=== PATIENT | female | born 1950 | race Caucasian/White ===

== ENCOUNTER 2023-12-07 08:53 | Inpatient (IN) | payer BC, MEDICAID ==
[~2023-12-07] VITALS: Ht 160 cm; Wt 61.3 kg
[2023-12-07] MEDS ORDERED: ketorolac trometh inj. 60 MG/2 ML VIAL IM ONE (10:55)
[2023-12-07] MEDS ORDERED: ketorolac tromethamine 15mg/ml inj. IM ONE (11:05)
[2023-12-07] MEDS: morphine 4 MG/ML inj SYRINge IV ONE (11:48)
[2023-12-07] MEDS: ondansetron/PF 4mg/2ml inj IV ONE (11:49)
[2023-12-07] MEDS ORDERED: EXEM25TA5 PO (11:54)
[2023-12-07 12:05] LABS: BASOPHILS # (AUTO) 0.1 X10'3 (0-0.2); BASOPHILS % (AUTO) 0.3 % (0-1); EOSINOPHILS % (AUTO) 0 % (0-6); HEMATOCRIT 40.8 % (35.0-45.0); HEMOGLOBIN 13.5 g/dl (12.0-16.0); LYMPHOCYTES % (AUTO) 4.9 % (21-51); MEAN CORPUSCULAR HEMOGLOBIN 31.6 PG (27.0-31.0); MEAN CORPUSCULAR HGB CONC 33.2 g/dL (33.0-36.5); MEAN CORPUSCULAR VOLUME 95.1 FL (78-98); MEAN PLATELET VOLUME 7.3 FL (7.4-10.4); MONOCYTES # (AUTO) 1.3 X10'3 (0-0.9); MONOCYTES % (AUTO) 6.3 % (2-12); NEUTROPHILS % (AUTO) 88.5 % (42-75); PLATELET COUNT 349 X10'3 (140-440); RED BLOOD COUNT 4.29 X10'6 (4.20-5.60); WHITE BLOOD COUNT 20.3 X10'3 (4.5-11.0)
[2023-12-07 12:24] LABS: PROTHROMBIN TIME 10.9 SECONDS (9.0-12.0)
[2023-12-07 12:30] LABS: ALANINE AMINOTRANSFERASE 38 U/L (12-78); ALBUMIN 4.2 G/DL (3.4-5.0); ALKALINE PHOSPHATASE 145 IU/L (46-116); ANION GAP 12 (8-16); ASPARTATE AMINO TRANSFERASE 30 U/L (10-37); BILIRUBIN,TOTAL 0.7 MG/DL (0.1-1.0); BLOOD UREA NITROGEN 25 MG/DL (7-18); BUN/CREATININE RATIO 25.3 (10.0-20.0); CHLORIDE 102 MMOL/L (99-107); CREATININE 0.99 MG/DL (0.40-0.90); GLUCOSE 142 MG/DL (70-104); SODIUM 140 MMOL/L (135-145); TOTAL CARBON DIOXIDE 25.6 MMOL/L (24-32); TOTAL PROTEIN 8.5 G/DL (6.4-8.2); eCRCL 42 ML/MIN; eGFR 55 ML/MIN
[2023-12-07 12:31] LABS: POTASSIUM 4.4 MMOL/L (3.5-5.1)
[2023-12-07] MEDS ORDERED: ondansetron/PF 4mg/2ml inj IV PRN (12:45)
[2023-12-07] MEDS ORDERED: morphine 2 MG/ML inj. syringe IV PRN ×2 (12:45)
[2023-12-07] MEDS ORDERED: acetaminophen 325mg tablet PO PRN (12:45)
[2023-12-07] MEDS: HYDROmorphone 1 mg/ml syringe IV ONE (12:53)
[2023-12-07] MEDS: HYDROcodone/acetaminophen 10/325mg tab PO PRN (14:15)
[2023-12-07] MEDS: normal saline 1000ml 1,000 ML IV SCH (14:15)
[2023-12-07] MEDS: HYDROmorphone 1 mg/ml syringe IV PRN (16:18)
[2023-12-07 18:00] VITALS: BP 114/71; PULSE 108; RESP 18; TEMP 97.6; O2SAT 94
[2023-12-07] MEDS: docusate sod 100mg capsule PO SCH (19:55)
[2023-12-07] MEDS: heparin, porcine 5000 units/ml vial SQ SCH (19:56)
[2023-12-07 20:30] VITALS: RESP 18
[2023-12-07 22:00] VITALS: BP 150/75; PULSE 109; RESP 18; TEMP 97.8; O2SAT 93
[2023-12-08] VITALS (16 sets, daily range): BP systolic 114–169; BP diastolic 63–88; PULSE 68–107; RESP 10–20; TEMP 96.8–99.3; O2SAT 93–100
[2023-12-08 06:16] LABS: BASOPHILS % (AUTO) 0.2 % (0-1); EOSINOPHILS % (AUTO) 0.2 % (0-6); HEMATOCRIT 35.3 % (35.0-45.0); HEMOGLOBIN 11.9 g/dl (12.0-16.0); LYMPHOCYTES # (AUTO) 1.2 X10'3 (1.1-4.8); LYMPHOCYTES % (AUTO) 10.6 % (21-51); MEAN CORPUSCULAR HEMOGLOBIN 31.9 PG (27.0-31.0); MEAN CORPUSCULAR HGB CONC 33.8 g/dL (33.0-36.5); MEAN CORPUSCULAR VOLUME 94.5 FL (78-98); MEAN PLATELET VOLUME 7.7 FL (7.4-10.4); MONOCYTES # (AUTO) 0.8 X10'3 (0-0.9); NEUTROPHILS # (AUTO) 9.6 X10'3 (1.8-7.7); PLATELET COUNT 262 X10'3 (140-440); RED BLOOD COUNT 3.74 X10'6 (4.20-5.60); RED CELL DISTRIBUTION WIDTH 13.1 % (11.5-14.5); WHITE BLOOD COUNT 11.7 X10'3 (4.5-11.0)
[2023-12-08] MEDS: HYDROcodone/acetaminophen 5mg/325mg tablet PO PRN (08:30)
[2023-12-08] MEDS ORDERED: vancomycin 1,000mg inj ONE (10:28)
[2023-12-08] MEDS ORDERED: BUPIVAcaine/PF 2.5mg/ml (0.25%) 10ml vial ONE (10:28)
[2023-12-08] MEDS ORDERED: morphine 4 MG/ML inj SYRINge IV PRN (10:55)
[2023-12-08] MEDS ORDERED: ringers solution, lacted 1,000 ML IV SCH (10:55)
[2023-12-08] MEDS ORDERED: ondansetron/PF 4mg/2ml inj IV PRN (10:55)
[2023-12-08] MEDS ORDERED: labetalol 20mg/4ml (5mg/ml) syringe IV PRN (10:55)
[2023-12-08] MEDS ORDERED: meperidine/PF 25mg/ml syringe IV PRN ×3 (10:55)
[2023-12-08] MEDS ORDERED: enalaprilat dihydrate 2.5mg/2ml vial IV PRN (10:55)
[2023-12-08] MEDS ORDERED: proCHLORperazine 10 MG/2 ml inj IV PRN (10:55)
[2023-12-08] MEDS ORDERED: morphine 2 MG/ML inj. syringe IV PRN (10:55)
[2023-12-08] MEDS ORDERED: BUPIVAcaine/dex-water/PF 7.5 mg/ml 2ml ampul ONE (11:07)
[2023-12-08] MEDS ORDERED: fentaNYL/PF 50MCG/1 ML 2ML syringe ONE (11:17)
[2023-12-08] MEDS ORDERED: MIDAZolam 1 MG/ML 5ML VIAL ONE (11:17)
[2023-12-08] MEDS ORDERED: tranexamic acid 100mg/ml inj. ONE (11:21)
[2023-12-08] MEDS ORDERED: ceFAZolin 1000mg inj ONE ×2 (11:35)
[2023-12-08] MEDS: vancomycin 1,000mg inj IVT ONE (12:09)
[2023-12-08] MEDS: cefazolin 2gm/D5W 100mL 100 ML IV SCH (16:11)
[2023-12-08] MEDS: temazepam 15mg capsule PO PRN (20:44)
[2023-12-09 02:00] VITALS: BP 162/92; PULSE 108; RESP 20; TEMP 98.5; O2SAT 94
[2023-12-09 06:00] VITALS: BP 168/85; PULSE 106; RESP 23; TEMP 96; O2SAT 98
[2023-12-09 06:08] LABS: BASOPHILS % (AUTO) 0.2 % (0-1); EOSINOPHILS % (AUTO) 0.1 % (0-6); HEMATOCRIT 33.6 % (35.0-45.0); HEMOGLOBIN 11.6 g/dl (12.0-16.0); LYMPHOCYTES # (AUTO) 1.2 X10'3 (1.1-4.8); LYMPHOCYTES % (AUTO) 9.3 % (21-51); MEAN CORPUSCULAR HEMOGLOBIN 32.7 PG (27.0-31.0); MEAN CORPUSCULAR HGB CONC 34.6 g/dL (33.0-36.5); MEAN CORPUSCULAR VOLUME 94.6 FL (78-98); MEAN PLATELET VOLUME 7.7 FL (7.4-10.4); MONOCYTES # (AUTO) 1.3 X10'3 (0-0.9); MONOCYTES % (AUTO) 9.9 % (2-12); NEUTROPHILS # (AUTO) 10.8 X10'3 (1.8-7.7); NEUTROPHILS % (AUTO) 80.5 % (42-75); PLATELET COUNT 295 X10'3 (140-440); RED BLOOD COUNT 3.55 X10'6 (4.20-5.60); RED CELL DISTRIBUTION WIDTH 12.4 % (11.5-14.5); WHITE BLOOD COUNT 13.3 X10'3 (4.5-11.0)
[2023-12-09 06:30] LABS: ALBUMIN 2.9 G/DL (3.4-5.0); ANION GAP 9 (8-16); BLOOD UREA NITROGEN 9 MG/DL (7-18); BUN/CREATININE RATIO 14.1 (10.0-20.0); CALCIUM 8.8 MG/DL (8.5-10.1); CHLORIDE 101 MMOL/L (99-107); CREATININE 0.64 MG/DL (0.40-0.90); GLUCOSE 133 MG/DL (70-104); MAGNESIUM 1.9 MG/DL (1.5-2.4); POTASSIUM 3.1 MMOL/L (3.5-5.1); SODIUM 136 MMOL/L (135-145); TOTAL CARBON DIOXIDE 25.8 MMOL/L (24-32); eCRCL 66 ML/MIN; eGFR > 90 ML/MIN
[2023-12-09] MEDS ORDERED: magnesium 4gm in 100ml NS 100 ML IV PRN (07:05)
[2023-12-09] MEDS ORDERED: magnesium 2GM in 50ml NS 50 ML IV PRN (07:05)
[2023-12-09] MEDS ORDERED: potassium Cl 40MEQ/1/2NS 520ml 520 ML IV PRN (07:05)
[2023-12-09] MEDS ORDERED: magnesium Cl slow-release 64mg tablet PO PRN (07:05)
[2023-12-09] MEDS: K and/or MAG REPLACEMENT MC SCH (08:00)
[2023-12-09 10:00] VITALS: BP 159/83; PULSE 103; RESP 16; TEMP 98; O2SAT 98
[2023-12-09] MEDS: potassium Cl 20 mEq SR tablet PO PRN ×2 (10:21→19:51)
[2023-12-09 18:00] VITALS: BP 145/86; PULSE 109; RESP 16; TEMP 97.9; O2SAT 98
[2023-12-09 20:20] VITALS: RESP 18
[2023-12-09 22:00] VITALS: BP 134/85; PULSE 99; RESP 16; TEMP 98.8; O2SAT 97
[2023-12-10] MEDS: magnesium hydroxide 30ml (MOM) UD suspension PO PRN (04:49)
[2023-12-10 06:00] VITALS: BP 145/84; PULSE 103; RESP 18; TEMP 97.9; O2SAT 97
[2023-12-10 06:21] LABS: BASOPHILS % (AUTO) 0.2 % (0-1); EOSINOPHILS % (AUTO) 0.3 % (0-6); HEMATOCRIT 31.4 % (35.0-45.0); LYMPHOCYTES # (AUTO) 1.2 X10'3 (1.1-4.8); LYMPHOCYTES % (AUTO) 11.6 % (21-51); MEAN CORPUSCULAR HEMOGLOBIN 32.7 PG (27.0-31.0); MEAN CORPUSCULAR VOLUME 93.6 FL (78-98); MEAN PLATELET VOLUME 7.8 FL (7.4-10.4); MONOCYTES # (AUTO) 1.1 X10'3 (0-0.9); MONOCYTES % (AUTO) 10.3 % (2-12); NEUTROPHILS % (AUTO) 77.6 % (42-75); PLATELET COUNT 269 X10'3 (140-440); RED BLOOD COUNT 3.35 X10'6 (4.20-5.60); RED CELL DISTRIBUTION WIDTH 12.7 % (11.5-14.5); WHITE BLOOD COUNT 10.3 X10'3 (4.5-11.0)
[2023-12-10 06:29] LABS: ALBUMIN 2.4 G/DL (3.4-5.0); ANION GAP 8 (8-16); BLOOD UREA NITROGEN 12 MG/DL (7-18); BUN/CREATININE RATIO 17.4 (10.0-20.0); CALCIUM 8.7 MG/DL (8.5-10.1); CHLORIDE 100 MMOL/L (99-107); CREATININE 0.69 MG/DL (0.40-0.90); GLUCOSE 121 MG/DL (70-104); POTASSIUM 3.7 MMOL/L (3.5-5.1); SODIUM 133 MMOL/L (135-145); TOTAL CARBON DIOXIDE 25.4 MMOL/L (24-32); eCRCL 61 ML/MIN; eGFR 84 ML/MIN
[2023-12-10 08:00] VITALS: RESP 18; O2SAT 97
[2023-12-10 09:03] VITALS: TEMP 98
[2023-12-10 18:00] VITALS: BP 153/81; PULSE 98; RESP 18; TEMP 98.1; O2SAT 97
[2023-12-10 20:00] VITALS: RESP 18; O2SAT 97
[2023-12-10] MEDS: zolpidem 5mg tablet PO PRN (20:30)
[2023-12-10 22:00] VITALS: BP 121/70; PULSE 98; RESP 16; TEMP 98; O2SAT 97
[2023-12-11 06:08] LABS: BASOPHILS % (AUTO) 0.2 % (0-1); EOSINOPHILS # (AUTO) 0.1 X10'3 (0-0.9); EOSINOPHILS % (AUTO) 1.4 % (0-6); HEMATOCRIT 28.8 % (35.0-45.0); HEMOGLOBIN 9.8 g/dl (12.0-16.0); LYMPHOCYTES # (AUTO) 1.3 X10'3 (1.1-4.8); LYMPHOCYTES % (AUTO) 14.2 % (21-51); MEAN CORPUSCULAR HEMOGLOBIN 32.2 PG (27.0-31.0); MEAN CORPUSCULAR VOLUME 94.5 FL (78-98); MEAN PLATELET VOLUME 7.8 FL (7.4-10.4); MONOCYTES % (AUTO) 10.9 % (2-12); NEUTROPHILS # (AUTO) 6.6 X10'3 (1.8-7.7); NEUTROPHILS % (AUTO) 73.3 % (42-75); PLATELET COUNT 276 X10'3 (140-440); RED BLOOD COUNT 3.04 X10'6 (4.20-5.60); RED CELL DISTRIBUTION WIDTH 12.7 % (11.5-14.5)
[2023-12-11 06:12] LABS: ALBUMIN 2.1 G/DL (3.4-5.0); ANION GAP 6 (8-16); BLOOD UREA NITROGEN 12 MG/DL (7-18); BUN/CREATININE RATIO 21.8 (10.0-20.0); CALCIUM 8.4 MG/DL (8.5-10.1); CHLORIDE 102 MMOL/L (99-107); CREATININE 0.55 MG/DL (0.40-0.90); GLUCOSE 128 MG/DL (70-104); POTASSIUM 3.9 MMOL/L (3.5-5.1); SODIUM 136 MMOL/L (135-145); eCRCL 76 ML/MIN; eGFR > 90 ML/MIN
[2023-12-11 06:47] VITALS: BP 105/65; PULSE 95; RESP 16; TEMP 98.7; O2SAT 97
[2023-12-11 07:59] VITALS: RESP 16; O2SAT 97
[2023-12-11] MEDS: EXEMESTANE PO SCH (08:15)
[2023-12-11 10:50] VITALS: BP 117/64; PULSE 99; RESP 16; TEMP 97.6; O2SAT 99
[2023-12-11] MEDS: HYDROcodone/acetaminophen 10/325mg tab PO PRN (12:23)
[2023-12-11] MEDS: bisacodyl 10mg suppository rectal RC STA (15:22)
[2023-12-11 18:00] VITALS: BP 135/72; PULSE 99; RESP 16; TEMP 97.6; O2SAT 99
[2023-12-11] MEDS: magnesium hydroxide 30ml (MOM) UD suspension PO PRN (19:01)
[2023-12-11 20:00] VITALS: RESP 16; O2SAT 99
[2023-12-11 22:00] VITALS: BP 137/76; PULSE 113; RESP 20; TEMP 98.7; O2SAT 99
[2023-12-12] VITALS: RESP 16; O2SAT 99
[2023-12-12 05:53] LABS: BASOPHILS % (AUTO) 0.3 % (0-1); EOSINOPHILS # (AUTO) 0.1 X10'3 (0-0.9); EOSINOPHILS % (AUTO) 1.6 % (0-6); HEMATOCRIT 30.6 % (35.0-45.0); HEMOGLOBIN 10.5 g/dl (12.0-16.0); LYMPHOCYTES # (AUTO) 1.6 X10'3 (1.1-4.8); LYMPHOCYTES % (AUTO) 18.7 % (21-51); MEAN CORPUSCULAR HEMOGLOBIN 32.3 PG (27.0-31.0); MEAN CORPUSCULAR HGB CONC 34.4 g/dL (33.0-36.5); MEAN PLATELET VOLUME 7.7 FL (7.4-10.4); MONOCYTES # (AUTO) 0.9 X10'3 (0-0.9); MONOCYTES % (AUTO) 10.8 % (2-12); NEUTROPHILS # (AUTO) 5.9 X10'3 (1.8-7.7); NEUTROPHILS % (AUTO) 68.6 % (42-75); PLATELET COUNT 314 X10'3 (140-440); RED BLOOD COUNT 3.25 X10'6 (4.20-5.60); RED CELL DISTRIBUTION WIDTH 12.9 % (11.5-14.5); WHITE BLOOD COUNT 8.6 X10'3 (4.5-11.0)
[2023-12-12 05:56] LABS: ALBUMIN 2.3 G/DL (3.4-5.0); ANION GAP 4 (8-16); BLOOD UREA NITROGEN 7 MG/DL (7-18); BUN/CREATININE RATIO 11.7 (10.0-20.0); CALCIUM 8.8 MG/DL (8.5-10.1); CHLORIDE 102 MMOL/L (99-107); GLUCOSE 128 MG/DL (70-104); MAGNESIUM 2.2 MG/DL (1.5-2.4); SODIUM 135 MMOL/L (135-145); TOTAL CARBON DIOXIDE 29.4 MMOL/L (24-32); eCRCL 70 ML/MIN; eGFR > 90 ML/MIN
[2023-12-12 06:27] VITALS: BP 140/76; PULSE 102; RESP 16; TEMP 97.7; O2SAT 97
[2023-12-12 07:40] VITALS: RESP 16; O2SAT 97
[2023-12-12 08:11] LABS: BILIRUBIN,URINE NEGATIVE (Neg); CLARITY,URINE CLEAR (Clear); COLOR,URINE YELLOW (Yellow); GLUCOSE, URINE NEGATIVE (Neg); KETONES,URINE 15 mg/dl (Neg); LEUKOCYTE ESTERASE ,URINE NEGATIVE (Neg); NITRITES, URINE NEGATIVE (Neg); OCCULT BLOOD,URINE NEGATIVE (Neg); PH,URINE 6.5 (4.8-8.0); PROTEIN,URINE NEGATIVE (Neg); UROBILINOGEN,URINE 0.2 E.U/dL (0.2-1.0)
[2023-12-12 08:12] LABS: UA COLLECTION TYPE OTHER
[2023-12-12 10:59] VITALS: BP 124/76; PULSE 68; RESP 17; TEMP 96.8; O2SAT 99
[2023-12-12 18:32] VITALS: RESP 18
== END 2023-12-12 18:47 | DRG 522 ==
LOC: ER 08:54 → ED HOLD 12:43 → EDBEDREQ 14:58 → SUR 3N 15:53
PROVIDERS: ADMIT Internal Medicine; ATTEND Internal Medicine
PROC: 0SRS0JZ Replacement of Left Hip Joint, Femoral Surface with Synthetic Substitute, Open Approach (ICD-10-PCS; principal; 2023-12-08 11:07)
DX: S72.032A Displaced midcervical fracture of left femur, initial encounter for closed fracture (principal); C79.51 Secondary malignant neoplasm of bone; E88.09 Other disorders of plasma-protein metabolism, not elsewhere classified; E86.0 Dehydration; Z66 Do not resuscitate; E87.6 Hypokalemia; Z85.3 Personal history of malignant neoplasm of breast; W18.30XA Fall on same level, unspecified, initial encounter; Y93.89 Activity, other specified; Y92.89 Other specified places as the place of occurrence of the external cause; Y99.8 Other external cause status
CPT/HCPCS: 36415; 71045; 72170; 73502; 80048; 80053; 81003; 82948; 83735; 85025; 85610; 87081; 93005; 96374; 96375; 97110; 97116; 97161; 97530; 99285; A4314; A4618; A6446; A7000; C1776; G0378; J0690; J1170; J1644; J2250; J2270; J2405; J3010; J3370; J3490; J7030; J7120

== ENCOUNTER 2024-11-14 16:57 | Emergency (ER) | payer BC, MEDICAID ==
[~2024-11-14] VITALS: Ht 160 cm; Wt 64.5 kg
[~2024-11-14 16:57] MED LIST: EXEM25TA5 PO
[2024-11-14] MEDS ORDERED: pantoprazole 40mg IV 80 MG in normal saline 100ml IV soln 100 ML IV ONE (18:40)
[2024-11-14] MEDS: polyethylene glycol 3350 17gm powd pack PO SCH (19:11)
[2024-11-14] MEDS: normal saline 1000ML IV soln IVB ONE (19:11)
[2024-11-14] MEDS: pantoprazole 40 MG vial IV ONE (19:11)
[2024-11-14] MEDS: morphine 2 MG/ML inj. syringe IV PRN (19:22)
[2024-11-14 19:30] LABS: BASOPHILS % (AUTO) 0.3 % (0-1); EOSINOPHILS % (AUTO) 0.1 % (0-6); HEMATOCRIT 40.4 % (35.0-45.0); LYMPHOCYTES # (AUTO) 1.9 X10'3 (1.1-4.8); LYMPHOCYTES % (AUTO) 18.4 % (21-51); MEAN CORPUSCULAR HGB CONC 34.8 g/dL (33.0-36.5); MEAN CORPUSCULAR VOLUME 92.1 FL (78-98); MEAN PLATELET VOLUME 7.4 FL (7.4-10.4); MONOCYTES # (AUTO) 0.8 X10'3 (0-0.9); MONOCYTES % (AUTO) 7.6 % (2-12); NEUTROPHILS # (AUTO) 7.7 X10'3 (1.8-7.7); NEUTROPHILS % (AUTO) 73.6 % (42-75); PLATELET COUNT 443 X10'3 (140-440); RED BLOOD COUNT 4.38 X10'6 (4.20-5.60); RED CELL DISTRIBUTION WIDTH 13.4 % (11.5-14.5); WHITE BLOOD COUNT 10.4 X10'3 (4.5-11.0)
[2024-11-14 19:47] LABS: ALANINE AMINOTRANSFERASE 30 U/L (12-78); ALBUMIN 4.1 G/DL (3.4-5.0); ALBUMIN/GLOBULIN RATIO 1.2 (1.1-1.5); ALKALINE PHOSPHATASE 128 IU/L (46-116); ANION GAP 13 (8-16); ASPARTATE AMINO TRANSFERASE 24 U/L (10-37); BILIRUBIN,TOTAL 0.3 MG/DL (0.1-1.0); BLOOD UREA NITROGEN 16 MG/DL (7-18); BUN/CREATININE RATIO 16.5 (10.0-20.0); CALCIUM 9.5 MG/DL (8.5-10.1); CHLORIDE 102 MMOL/L (99-107); CREATININE 0.97 MG/DL (0.40-0.90); GLUCOSE 110 MG/DL (70-104); LIPASE 40 U/L (16-77); POTASSIUM 3.7 MMOL/L (3.5-5.1); SODIUM 138 MMOL/L (135-145); TOTAL CARBON DIOXIDE 22.7 MMOL/L (24-32); TOTAL PROTEIN 7.6 G/DL (6.4-8.2); eCRCL 43 ML/MIN; eGFR 56 ML/MIN
[2024-11-14 20:05] LABS: D-DIMER 0.52 MG/L FEU (0-0.50)
[2024-11-14 20:47] LABS: BILIRUBIN,URINE NEGATIVE (Neg); CLARITY,URINE CLEAR (Clear); COLOR,URINE YELLOW (Yellow); GLUCOSE, URINE NEGATIVE (Neg); KETONES,URINE 15 mg/dl (Neg); LEUKOCYTE ESTERASE ,URINE NEGATIVE (Neg); NITRITES, URINE NEGATIVE (Neg); OCCULT BLOOD,URINE TRACE-INTACT (Neg); PROTEIN,URINE NEGATIVE (Neg); UA COLLECTION TYPE NON-SPECIFIED; UROBILINOGEN,URINE 0.2 E.U/dL (0.2-1.0)
[2024-11-14 20:57] LABS: WBC,URINE 0-4 /HPF (0-4)
[2024-11-14 20:58] LABS: BACTERIA,URINE NONE SEEN /HPF (Neg); RBC,URINE 0-2 /HPF (0-2); SQUAMOUS EPITHELIAL CELL,UR FEW /LPF (FEW)
[2024-11-14] MEDS ORDERED: PENI-88 PO (21:36)
[2024-11-14] MEDS ORDERED: celeCOXIB 100mg capsule PO SCH (21:55)
[2024-11-14] MEDS: celeCOXIB 100mg capsule PO ONE (22:02)
[2024-11-14 22:43] VITALS: BP 142/80; PULSE 80; RESP 16; TEMP 97.6; O2SAT 99
== END 2024-11-14 22:46 | disposition home or self-care (01) ==
LOC: ER 16:58
DX: K59.00 Constipation, unspecified (principal); R06.02 Shortness of breath; R51.9 Headache, unspecified; F12.90 Cannabis use, unspecified, uncomplicated; Z85.3 Personal history of malignant neoplasm of breast
CPT/HCPCS: 36415; 71045; 74019; 80053; 81001; 83605; 83690; 84484; 85025; 85379; 86885; 86900; 86901; 87040; 96361; 96374; 96375; 96376; 99284; J2270; J2470; J7030